=== PATIENT | male | born 1940 | race Caucasian/White ===

== ENCOUNTER 2017-08-09 16:35 | Outpatient (CLI) | payer OTHER ==
[2017-08-14] MEDS ORDERED: FAMOTIDINE10 MG PO (07:46)
[2017-08-14] MEDS ORDERED: ATORVASTATIN CA20 MG PO (07:46)
== END 2017-08-09 16:38 | disposition home or self-care (01) ==
LOC: EDSTATUS 16:35 → EKG 16:35
DX: I10 Essential (primary) hypertension (principal)

== ENCOUNTER 2017-08-09 16:41 | Outpatient (CLI) | payer OTHER ==
[2017-08-14] MEDS ORDERED: ATORVASTATIN CA20 MG PO (07:46)
[2017-08-14] MEDS ORDERED: FAMOTIDINE10 MG PO (07:46)
== END 2017-08-09 16:44 | disposition home or self-care (01) ==
LOC: RAD 16:41
DX: Z01.810 Encounter for preprocedural cardiovascular examination (principal)

== ENCOUNTER 2017-08-15 06:26 | Day surgery (SDC) | payer OTHER ==
[~2017-08-15 06:26] MED LIST: ATORVASTATIN CA20 MG PO; FAMOTIDINE10 MG PO
== END 2017-08-15 12:00 | disposition home or self-care (01) ==
LOC: CIR.AMB 06:26
DX: M18.12 Unilateral primary osteoarthritis of first carpometacarpal joint, left hand (principal)